=== PATIENT | male | born 1985 | race Caucasian/White ===

== ENCOUNTER → 2017-02-17 | Outpatient (CLI) | payer OTHER ==
[~2017-02-17] MED LIST: AURALGAN OTIC S10 ML AD; BENTYL20 M1 PO; COLACE PO; FLEXERIL10 MG PO; IBUPROFEN800 MG PO; KEPPRA250 MG PO; MIRALAX17 G2 PO; NAPROXEN CR500 MG; NO MEDICATIONS; PANTOPRAZOLE SO40 MG PO; PEPCID PO; PHENERGAN25 M1 PO; ROBAXIN500 MG PO; SUDAFED30 M1 PO; TRAMADOL HCL50 M2 PO; TYLENOL #3 PO; ZOFRAN ODT4 MG PO; ZYRTEC PO
== END | disposition home or self-care (01) ==
LOC: CLAB 14:28
DX: K52.9 Noninfective gastroenteritis and colitis, unspecified (principal)
CPT/HCPCS: 36415; 83516; 83630; 87328; 87329; 87493